=== PATIENT | male | born 1960 | race Caucasian/White ===

== ENCOUNTER 2017-08-17 18:34 | Inpatient (IN) | payer OTHER ==
[~2017-08-17] VITALS: Ht 170.2 cm; Wt 109.2 kg
[2017-08-17] MEDS ORDERED: SODIUM CHLORIDE 0.9% 1000ML 1,000 ML IV STA ×2 (18:49→18:52)
[2017-08-17] MEDS ORDERED: FENTANYL CITRATE INJ 50 MCG/1 ML 2 ML VIAL IV STA ×2 (18:51→20:58)
[2017-08-17] MEDS ORDERED: OPTIRAY 320 IV PRN (19:00)
[2017-08-17 19:33] LABS: HEMATOCRIT 39.2 % (42-52); HEMOGLOBIN 14.2 g/dL (14.0-18.0); MEAN CELL VOLUME 90.5 fL (80-100); MEAN CORPUSCULAR HEMOGLOBIN 32.8 pg (25-34); MEAN CORPUSCULAR HGB CONC 36.2 g/dl (32-36); MEAN PLATELET VOLUME 8.2 fL (7.4-10.4); PLATELET COUNT 217 K/uL (130-400); RED CELL DISTRIBUTION WIDTH CV 12.6 % (11.5-14.5); RED CELL DISTRIBUTION WIDTH SD 41.4 fL (36.4-46.3); WHITE BLOOD COUNT 12.04 K/uL (4.8-10.8)
[2017-08-17 20:02] LABS: ALBUMIN 3.8 gm/dl (3.4-5.0); CALCIUM 8.5 mg/dl (8.5-10.1); CREATININE 1.02 mg/dl (0.60-1.40); POTASSIUM 3.5 mmol/L (3.5-5.1)
[2017-08-17 20:14] LABS: ISTAT CREATININE 0.7 mg/dl (0.6-1.3); ISTAT IONIZED CALCIUM 1.07 mmol/l (1.12-1.32); ISTAT POTASSIUM 3.5 mEq/L (3.3-5.0)
[2017-08-17 20:27] LABS: BASO % 0.2 %; BASO ABS # 0.02 K/uL (0-0.2); EOS % 1.4 %; EOS ABS # 0.17 K/uL (0-0.5); IG# 0.04 K/uL (0.00-0.02); LYMPH % 13.8 %; LYMPH ABS # 1.66 K/uL (1.2-3.4); MONO % 6.6 %; MONO ABS # 0.79 K/uL (0.11-0.59); NEUT % 77.7 %; NEUT ABS # 9.36 K/uL (1.4-6.5)
--- NOTE | 2017-08-17 20:27 | DIAGNOSTIC IMAGING REPORT ---
CT OF THE HEAD WITHOUT CONTRAST CLINICAL HISTORY: EVALUATE FOR TRAUMA/INJURY COMPARISON STUDY: No previous studies for comparison. CT DOSE: 2559.48 mGy.cm TECHNIQUE: Helical axial images of the head were obtained without IV contrast. Automated exposure control was utilized for the study. A dose lowering technique was utilized adhering to the principles of ALARA. FINDINGS: No acute intracranial hemorrhage, midline shift or mass effect is present. Ventricular system is normal. Basilar cisterns are patent. There are no extra-axial collections. A 1.1 cm inferior right frontal hypodensity is chronic and may reflect an old lacunar infarct or less likely prominent perivascular space. No chondral fracture is noted. There is nasal soft tissue swelling. There is minimally displaced bilateral nasal bone fractures and a suspected fracture through the anterior nasal septum. These fractures are likely acute. There is moderate mucosal thickening of the ethmoid sinuses. IMPRESSION: 1. No acute intracranial findings. 2. No calvarial fracture. 3. Nasal soft tissue swelling and minimally displaced bilateral nasal bone fractures and a suspected fracture through the anterior aspect of the nasal septum. These fractures are likely acute. Electronically signed by: Bud Tolbert M.D. 08/17/2017 8:26 PM Dictated Date/Time: 08/17/2017 8:23 PM
--- NOTE | 2017-08-17 20:31 | DIAGNOSTIC IMAGING REPORT ---
CT OF THE CERVICAL SPINE WITHOUT CONTRAST CLINICAL HISTORY: EVALUATE FOR TRAUMA/INJURY COMPARISON STUDY: No previous studies for comparison. TECHNIQUE: Helical axial images of the cervical spine were obtained without IV contrast. Sagittal and coronal reconstructions were viewed. A dose lowering technique was utilized adhering to the principles of ALARA. FINDINGS: There is straightening of the normal cervical lordosis. Craniocervical junction is intact. There is no acute cervical spine fracture. There is moderate to marked multilevel disc space narrowing and osteophytosis, most pronounced at the C5-C6 and C6-C7 levels. There is no prevertebral edema. A proximal left humeral fracture is noted on the screw machine tool setter images. IMPRESSION: 1. No acute cervical spine fracture or subluxation. 2. Displaced comminuted proximal left humeral fracture shown on the screw machine tool setter tomogram. Electronically signed by: Bud Tolbert M.D. 08/17/2017 8:30 PM Dictated Date/Time: 08/17/2017 8:26 PM
--- NOTE | 2017-08-17 20:47 | DIAGNOSTIC IMAGING REPORT ---
CT OF THE CHEST WITH IV CONTRAST CLINICAL HISTORY: Trauma COMPARISON STUDY: No previous studies for comparison. TECHNIQUE: Following IV administration of 116 mL of Optiray-[id number], helical axial images of the chest were obtained. Sagittal and coronal reconstructions were viewed as well as maximal intensity projections on an independent 3-D workstation. A dose lowering technique was utilized adhering to the principles of ALARA. FINDINGS: A comminuted, displaced left humeral neck and head fracture is partially imaged on this exam. A 2.5 cm associated bone fragment is adjacent to the left axillary artery. There is no definite active extravasation on this exam and the artery appears patent. The size of the heart is normal. There is no evidence for traumatic injury to the thoracic aorta. There is no thoracic lymphadenopathy. No pneumothorax or pulmonary contusion is noted. No acute rib or thoracic spine fracture is identified. Visualized portions of the upper abdomen demonstrate fatty infiltration of the liver and gallstones within the gallbladder. There may be a small cystic duct stone. Note is made of a water attenuation 5.4 cm left adrenal lesion which likely reflects a cyst or pseudocyst. This has benign imaging characteristics. IMPRESSION: 1. Acute displaced, comminuted left humeral neck and head fracture which is partially imaged on this exam. Associated stranding/fluid suggests hemorrhage. Fracture fragment adjacent to the left axillary artery which appears patent. No definite active extravasation on this exam. 2. No additional acute traumatic findings within the chest. 3. Fatty liver. 4. Cholelithiasis. 5. 5.4 cm left adrenal cyst/pseudocyst which has benign imaging characteristics. Electronically signed by: Bud Tolbert M.D. 08/17/2017 8:46 PM Dictated Date/Time: 08/17/2017 8:36 PM
--- NOTE | 2017-08-17 20:58 | DIAGNOSTIC IMAGING REPORT ---
CHEST ONE VIEW PORTABLE CLINICAL HISTORY: EVALUATE FOR TRAUMA/INJURY COMPARISON STUDY: Chest CT performed earlier today. FINDINGS: There is no pneumothorax or pleural effusion. Cardiomediastinal silhouette is unremarkable. No airspace opacities are present. Lung volumes are normal. IMPRESSION: No acute cardiopulmonary findings. Electronically signed by: Bud Tolbert M.D. 08/17/2017 8:57 PM Dictated Date/Time: 08/17/2017 8:56 PM
--- NOTE | 2017-08-17 21:00 | DIAGNOSTIC IMAGING REPORT ---
L SHOULDER MIN 2 VIEWS ROUTINE CLINICAL HISTORY: Left shoulder pain following injury. COMPARISON: None FINDINGS: There is a markedly displaced, comminuted left humeral neck and head fracture. Multiple fracture fragments are present. Alignment of the glenohumeral joint is difficult to assess on this exam but likely anatomic. Alignment of the left acromioclavicular joint is anatomic. IMPRESSION: 1. Markedly displaced, comminuted left humeral neck and head fracture with multiple associated fracture fragments. 2. Alignment of left glenohumeral joint difficult to assess on this exam but intact. Electronically signed by: Bud Tolbert M.D. 08/17/2017 8:58 PM Dictated Date/Time: 08/17/2017 8:57 PM
--- NOTE | 2017-08-17 21:01 | DIAGNOSTIC IMAGING REPORT ---
L HUMERUS MIN 2 VIEWS ROUTINE CLINICAL HISTORY: Left shoulder pain following trauma. COMPARISON: None FINDINGS: Alignment of the left elbow is anatomic. There is no left elbow joint effusion. There is no distal left humeral fracture. There is a displaced, comminuted left humeral neck and head fracture which involves the greater tuberosity. Multiple fracture fragments are noted. IMPRESSION: Markedly displaced, comminuted left humeral neck and head fracture with multiple associated fracture fragments. No distal left humeral fracture. Anatomic alignment of left elbow. Electronically signed by: Bud Tolbert M.D. 08/17/2017 8:59 PM Dictated Date/Time: 08/17/2017 8:59 PM
--- NOTE | 2017-08-17 21:01 | DIAGNOSTIC IMAGING REPORT ---
L FOREARM 2 VIEWS ROUTINE CLINICAL HISTORY: Pain following trauma. COMPARISON: None FINDINGS: There is no left elbow joint effusion. There is no acute fracture of the left radius or ulna. Alignment of the left elbow is anatomic. IMPRESSION: No acute fracture of the left radius or ulna. Electronically signed by: Bud Tolbert M.D. 08/17/2017 9:00 PM Dictated Date/Time: 08/17/2017 8:59 PM
[2017-08-17] MEDS ORDERED: MoRPHine SULFATE 4 MG/ML 1 ML CARP\\VIAL IV PRN (21:30)
[2017-08-17] MEDS ORDERED: ONDANSETRON INJ 2 MG/ML 2 ML VIAL IV PRN (21:30)
--- NOTE | 2017-08-17 21:45 | DIAGNOSTIC IMAGING REPORT ---
R HAND MIN 3 VIEWS ROUTINE CLINICAL HISTORY: Right hand pain, swelling and bruising following trauma. COMPARISON: None FINDINGS: Alignment of the right hand is anatomic. There is no acute fracture. Note is made of a monitoring device on the second finger. IMPRESSION: No acute fracture or dislocation within the right hand. Electronically signed by: Bud Tolbert M.D. 08/17/2017 9:44 PM Dictated Date/Time: 08/17/2017 9:42 PM
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
[2017-08-17] MEDS ORDERED: ASC400 PO (21:49)
[2017-08-17] MEDS ORDERED: SERT50TA PO (21:49)
[2017-08-17] MEDS ORDERED: LEVO175T PO (21:49)
[2017-08-17] MEDS ORDERED: ASPI81TA28 PO (21:49)
[2017-08-17] MEDS ORDERED: FAMO40TA6 PO (21:49)
[2017-08-17] MEDS ORDERED: ACET-1256 PO (21:49)
[2017-08-17] MEDS ORDERED: PRAV20TA PO (21:49)
[2017-08-17] MEDS ORDERED: MULTTAB58 PO (21:49)
[2017-08-17] MEDS ORDERED: CALC625T35 PO (21:49)
[2017-08-17] MEDS ORDERED: CALC600T PO (21:49)
[2017-08-17] MEDS: OXYCODONE/ACETAMINOPHEN 5-325 TAB PO PRN (22:21)
[2017-08-17 23:35] VITALS: BP 136/81; PULSE 84; TEMP 37; O2SAT 98; Ht 170.2 cm; Wt 109.2 kg
[2017-08-18] VITALS (7 sets, daily range): BP systolic 96–137; BP diastolic 54–72; PULSE 71–114; TEMP 36.4–37.2; O2SAT 91–96
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
[2017-08-18] MEDS ORDERED: GLUCOSE 40% GEL 15 GM TUBE PO PRN (01:00)
[2017-08-18] MEDS ORDERED: GLUCOSE 10 TABS/TUBE PO PRN (01:00)
[2017-08-18] MEDS ORDERED: DEXTROSE 50% 50 ML SYR IV PRN (01:00)
[2017-08-18] MEDS ORDERED: GLUCAGON FOR INJ 1 MG VIAL SQ PRN (01:00)
[2017-08-18] MEDS: OXYCODONE/ACETAMINOPHEN 5-325 TAB PO PRN (02:30)
[2017-08-18] MEDS ORDERED: CEFAZOLIN SOD 2000MG/15 ML IV PUSH IV ONE (06:00)
[2017-08-18 07:02] LABS: HEMOGLOBIN A1C 6.2 % (4.5-5.6)
[2017-08-18] MEDS ORDERED: INSULIN ASPART 100 UNITS/ML 3 ML PEN SC SCH (08:00)
[2017-08-18] MEDS ORDERED: KETOROLAC TROMETHAMINE 30 MG/ML VIAL IV STA (08:26)
[2017-08-18] MEDS ORDERED: DOCUSATE SODIUM 100 MG CAP PO SCH (09:00)
--- NOTE | 2017-08-18 11:09 | DIAGNOSTIC IMAGING REPORT ---
L UPPER EXTREMITY WITHOUT CT DOSE: 1265.30 mGy.cm HISTORY: Fracture humerus Left Proximal Humerus Fx TECHNIQUE: Multiaxial CT images of the left shoulder were performed and reformatted in the sagittal and coronal plane without the use of contrast. A dose lowering technique was utilized adhering to the principles of ALARA. COMPARISON: None. FINDINGS: The severely comminuted and moderately impacted fracture of the left humeral head and neck. No evidence for dislocation. The humeral head is aligned anatomically within the glenoid fossa. Moderate degenerative change left acromioclavicular joint. Estimated impaction of the femoral head by the left humeral shaft is 1.2 cm. Ossific fragments are noted lateral and anterior to the humeral head measuring from 2.6 cm in maximum linear dimension, including 1.5 cm in a anterior and medial to the humeral neck. Cm more anterior position. Smaller fragmented ossific structures are noted medial to the left humeral neck. No evidence of dislocation. All remaining osseous structures are unremarkable. Maximum bony distraction of the displaced fragments is 1.1 cm. There is focal loss of articular surface which is displaced laterally at the anterior aspect of the humeral head again with a maximum linear surface dimension 2.6 cm. Bulk of the humeral head again appears to be intact. There is considerable stranding soft tissue edematous change. This extends to considerable edematous change of the high left axillary region. All remaining osseous structures are intact. IMPRESSION: 1. Severely comminuted and impacted fracture of the humeral head and neck with partial involvement of the anterior aspect of the articular surface of the humeral head. 2. A variety of bone fragments in terms of size are identified anterior and lateral to the anterior margin of the humeral head. 3. Additional fragments are noted anterior and medial to the humeral neck. 4. No evidence for dislocation. 5. Generalized soft tissue edema of the soft tissues surrounding the left shoulder as well as the lateral margin of the left chest wall. 6. No additional fractures are identified. The above report was generated using voice recognition software. It may contain grammatical, syntax or spelling errors. Electronically signed by: Callum Torres M.D. 08/18/2017 11:07 AM Dictated Date/Time: 08/18/2017 10:59 AM
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
[2017-08-18] MEDS ORDERED: FENTANYL CITRATE INJ 50 MCG/1 ML 2 ML VIAL ONE (14:28)
[2017-08-18] MEDS ORDERED: MIDAZOLAM HCL 1 MG/ML 2ML VIAL ONE (14:28)
[2017-08-18] MEDS ORDERED: EpINEphrine HCL INJ 1 MG/ML 1ML SYRINGE ONE (14:57)
[2017-08-18] MEDS ORDERED: BACITRACIN 50000 UNIT VIAL ONE (14:57)
[2017-08-18] MEDS ORDERED: EpHEDrine SULFATE 50MG/5ML SYR ONE ×2 (15:04→16:59)
[2017-08-18] MEDS ORDERED: FENTANYL CITRATE INJ 50 MCG/1 ML 2 ML VIAL IV PRN (15:30)
[2017-08-18] MEDS ORDERED: EpHEDrine SULFATE INJ 50 MG/ML AMP IV PRN (15:30)
[2017-08-18] MEDS ORDERED: HYDROmorphone INJ 1 MG/ML SYR IV PRN (15:30)
[2017-08-18] MEDS ORDERED: ONDANSETRON INJ 2 MG/ML 2 ML VIAL IV PRN (15:30)
[2017-08-18] MEDS ORDERED: ATROPINE SULFATE 0.1 MG/ML 5ML SYR IV PRN (15:30)
[2017-08-18] MEDS ORDERED: ROPIVACAINE 0.5% 5 MG/ML 30 ML VIAL ONE (15:31)
[2017-08-18] MEDS ORDERED: CLINDAMYCIN 600 MG/54 ML D5W IV ONE (15:43)
[2017-08-18] MEDS ORDERED: NURSING VERBAL MED ORDER ONE (15:45)
[2017-08-18] MEDS ORDERED: PROPOFOL IV EMULSION 10 MG/ML 20 ML VIAL IV ONE (15:55)
[2017-08-18] MEDS ORDERED: LIDOCAINE HCL 2% 2 ML VIAL (20MG/ML) ONE (15:55)
[2017-08-18] MEDS ORDERED: ROCURONIUM BROMIDE 10 MG/ML 5 ML VIAL IV ONE (15:55)
[2017-08-18] MEDS ORDERED: ONDANSETRON INJ 2 MG/ML 2 ML VIAL ONE (16:59)
[2017-08-18] MEDS ORDERED: DEXAMETHASONE SOD INJ 4 MG/ML VIAL ONE (16:59)
[2017-08-18] MEDS ORDERED: PHENYLEPHRINE 100MCG/ML 5ML SYR ONE (16:59)
[2017-08-18] MEDS ORDERED: NEOSTIGMINE METHYLSULFATE 5 MG/5 ML SYR ONE (16:59)
[2017-08-18] MEDS ORDERED: GLYCOPYRROLATE INJ 0.2 MG/ML VIAL ONE (16:59)
[2017-08-18] MEDS ORDERED: PHENYLEPHRINE HCL INJ 10 MG/ML VIAL ONE (17:29)
--- NOTE | 2017-08-18 17:39 | Family Medicine Progress Note ---
Progress Note Date of Service Aug 18, 2017. Subjective Pt evaluation today including: conversation w/ patient, physical exam, chart review, lab review, review of inpatient medication list See medical consultation note by Dr. Humphrey for H&P. Assessment and Plan The patient is a 57 year old male with a past medical history of HTN, Ulcerative Colitis, Depression, GERD, and HLD that presents from [facility] with a fractured left humerus. Left Humeral Head Fracture - Left Humeral X-Ray: Markedly displaced, comminuted left humeral neck and head fracture with multiple associated fracture fragments. No distal left humeral fracture. Anatomic alignment of left elbow. - patient NPO - gave 30mg IV toradol for pain relief as pt reported prior withdrawal symptoms after taking morphine/fentanyl and did not wish to take it again - Scheduled for surgery with Dr. Hidalgo - Revised Cardiac Risk Index for Pre-Operative Risk: Class 1 risk --> 0.4% chance of major cardiac event - Currently optimized for surgery Nasal Fractures - CT Head: Nasal soft tissue swelling and minimally displaced bilateral nasal bone fractures and a suspected fracture through the anterior aspect of the nasal septum. These fractures are likely acute. - No difficulties breathing at this time - likely outpatient management History of Hypertension - Currently normotensive with no antihypertensive medications (lifestyle controlled) - EKG: Normal Sinus Rhythm, No ST Changes, Ulcerative Colitis - No recent flares - Mesalamine 800mg PO BID --> Resume post operatively High Glucose Levels - Glucose levels were in the 200 on admission, patient denies any history of diabetes or elevated blood sugars - HbA1c = 6.2% - high risk for developing diabetes - pt's sugar fell to 160 prior to surgery - did not require pretreatment with insulin Depression - Continue Zoloft KATINA - Recommend sleep study as outpatient HLD - Continue Pravastatin GERD - Continue Pepcid Hypothyroidism - Continue Synthroid DVT - SCDs - Anticoagulation contraindicated (Surgery) Code Status - Full Resuscitation Thank you for the consult. Resident Physician Supervision Note: The patient was seen by the night team attending and resident. I was not able to see the patient as he was in the OR. I reviewed the notes from the night team and the addendum above by the day resident. Documented By: Sharif Menchaca Resident Tracking Resident Involvement: Resident Care Provided Care Provided: [facility]
[2017-08-18] MEDS ORDERED: ALBUMIN HUMAN 5% 12.5 GM/250 ML VIAL IV ONE (17:59)
--- NOTE | 2017-08-18 19:23 | [facility] Post Operative Brief Note ---
Immediate Operative Summary Operative Date Aug 18, 2017. Pre-Operative Diagnosis comminuted humerus fracture Post-Operative Diagnosis comminuted humerus fracture Procedure(s) Performed Left shoulder Natalio-arthoplasty repair rotator cuff and tuberosity with humeral head bone graft and bicep tenodesis Surgeon Dr Torres Network Design Architect Surgeon(s) Zach Sainz PA-C Estimated Blood Loss 500cc Findings Consistent with Post-Op Diagnosis Specimens As Per Surgeon A. Left Humeral head Drains 2 hemovac Anesthesia Type General Regional Complication(s) none Disposition Disposition: Recovery Room / PACU
[2017-08-18] MEDS ORDERED: BISACODYL 10 MG SUPP PR PRN (19:45)
[2017-08-18] MEDS ORDERED: MAGNESIUM HYDROXIDE SUSP 30 ML UDC PO PRN (19:45)
[2017-08-18] MEDS ORDERED: ALUMINUM/MAGNESIUM SUSP 30 ML UDC PO PRN (19:45)
[2017-08-18] MEDS ORDERED: MoRPHine SULFATE 2 MG/ML CARP IV PRN (19:45)
--- NOTE | 2017-08-18 20:08 | DIAGNOSTIC IMAGING REPORT ---
L SHOULDER MIN 2 VIEWS ROUTINE CLINICAL HISTORY: Left humeral fracture. Postop study. COMPARISON: 08/17/2017 DISCUSSION: There is a left shoulder hemiarthroplasty. There is a partially visualized 3 cm fracture fragment adjacent to the prosthetic humeral head. There is no dislocation. Overlying skin sadie and surgical drains are evident. IMPRESSION: Left shoulder hemiarthroplasty. No dislocation Electronically signed by: Jan Najera M.D. 08/18/2017 8:06 PM Dictated Date/Time: 08/18/2017 8:05 PM
--- NOTE | 2017-08-18 20:09 | Anesthesiology Progress Note ---
Anesthesia Post Op Note Date & Time Aug 18, 2017 at 20:09 Vital Signs Pain Intensity: 0 Vital Signs Past 12 Hours Date Time Temp Pulse Resp B/P (MAP) Pulse Ox O2 Delivery O2 Flow Rate FiO2 08/18/17 20:05 36.7 105 18 117/76 95 Nasal Cannula 4 08/18/17 19:55 102 18 119/73 95 Oxymask 6 08/18/17 19:45 112 20 118/73 96 Oxymask 6 08/18/17 19:39 36.4 112 20 116/72 96 Oxymask 10 08/18/17 15:22 36.9 82 16 117/67 (84) 95 Room Air Notes Mental Status: alert / awake / arousable, participated in evaluation Pt Amnestic to Procedure: Yes Nausea / Vomiting: adequately controlled Pain: adequately controlled Airway Patency, RR, SpO2: stable & adequate BP & HR: stable & adequate Hydration State: stable & adequate Anesthetic Complications: no major complications apparent
[2017-08-18 20:26] LABS: HEMATOCRIT 29.5 % (42-52)
[2017-08-18] MEDS ORDERED: MoRPHine SULFATE 10 MG/ML CARP/VIAL IV PRN (20:30)
[2017-08-18] MEDS ORDERED: MoRPHine SULFATE 4 MG/ML 1 ML CARP\\VIAL IV PRN (20:30)
[2017-08-18] MEDS: DOCUSATE SODIUM 100 MG CAP PO SCH (21:22)
[2017-08-18] MEDS: ACETAMINOPHEN 500 MG TAB PO SCH (21:23)
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
[2017-08-18] MEDS: OXYCODONE HCL IR 5 MG TAB (IMMEDIATE RELEASE) PO PRN (22:08)
[2017-08-19] MEDS: KETOROLAC TROMETHAMINE 30 MG/ML VIAL IV. SCH ×4 (00:07→18:00)
[2017-08-19] MEDS: CLINDAMYCIN IV 600 MG in DEXTROSE 5% 50ML 50 ML IV SCH ×2 (00:08→08:45)
[2017-08-19 03:38] VITALS: BP 104/62; PULSE 101; TEMP 36.9; O2SAT 93
[2017-08-19] MEDS: ACETAMINOPHEN 500 MG TAB PO SCH ×3 (05:34→22:21)
[2017-08-19 07:22] LABS: HEMATOCRIT 24.4 % (42-52); HEMOGLOBIN 8.5 g/dL (14.0-18.0); MEAN CELL VOLUME 93.5 fL (80-100); MEAN CORPUSCULAR HEMOGLOBIN 32.6 pg (25-34); MEAN CORPUSCULAR HGB CONC 34.8 g/dl (32-36); PLATELET COUNT 167 K/uL (130-400); RED CELL DISTRIBUTION WIDTH CV 13.2 % (11.5-14.5); RED CELL DISTRIBUTION WIDTH SD 45.7 fL (36.4-46.3); WHITE BLOOD COUNT 9.69 K/uL (4.8-10.8)
[2017-08-19 07:44] VITALS: BP 112/66; PULSE 105; TEMP 36.6; O2SAT 95
[2017-08-19] MEDS: OXYCODONE HCL IR 5 MG TAB (IMMEDIATE RELEASE) PO PRN ×3 (07:46→21:11)
[2017-08-19 07:50] LABS: CALCIUM 7.9 mg/dl (8.5-10.1); CREATININE 0.81 mg/dl (0.60-1.40)
[2017-08-19] MEDS: SERTRALINE HCL 50 MG TAB PO SCH (09:00)
[2017-08-19] MEDS: MESALAMINE 400 MG CAPDR PO SCH ×3 (09:00→21:05)
[2017-08-19] MEDS: DOCUSATE SODIUM 100 MG CAP PO SCH ×2 (09:19→21:05)
[2017-08-19] MEDS: MULTIVITAMIN TAB PO SCH (09:20)
[2017-08-19] MEDS: ASPIRIN 325 MG ECTAB PO SCH (09:28)
[2017-08-19] MEDS: LEVOTHYROXINE 175 MCG TAB PO SCH (10:13)
--- NOTE | 2017-08-19 10:59 | Anesthesiology Progress Note ---
Anesthesia Post Op Note Date & Time Aug 19, 2017 at 10:58 Vital Signs Vital Signs Past 12 Hours Date Time Temp Pulse Resp B/P (MAP) Pulse Ox O2 Delivery O2 Flow Rate FiO2 08/19/17 08:00 Room Air 08/19/17 07:44 36.6 105 18 112/66 (81) 95 Room Air 08/19/17 03:38 36.9 101 18 104/62 (76) 93 Room Air 08/19/17 00:00 Nasal Cannula 2.0 08/18/17 23:30 36.8 108 18 98/54 (69) 96 Nasal Cannula 2.0 Notes Mental Status: alert / awake / arousable, participated in evaluation Pt Amnestic to Procedure: Yes Nausea / Vomiting: adequately controlled Pain: adequately controlled Airway Patency, RR, SpO2: stable & adequate BP & HR: stable & adequate Hydration State: stable & adequate Anesthetic Complications: no major complications apparent
[2017-08-19 16:07] VITALS: BP 99/61; PULSE 100; TEMP 37.1; O2SAT 93
--- NOTE | 2017-08-19 16:10 | Orthopedic Progress Note ---
Orthopedic Progress Note Date of Service Aug 19, 2017. Subjective Post OP Day: 1 Reports: feeling well, pain controlled w PO medications, Denies: complaints, chest pain, SOB, nausea / vomiting, light headedness, calf pain Objective N/V intact, capillary refill less than 2 sec., dressing C/D/I, A&O x3 sling in tact, fingers mobile. Date Time Temp Pulse Resp B/P (MAP) Pulse Ox O2 Delivery O2 Flow Rate FiO2 08/19/17 16:07 37.1 100 19 99/61 (74) 93 Room Air 08/19/17 08:00 Room Air 08/19/17 07:44 36.6 105 18 112/66 (81) 95 Room Air 08/19/17 03:38 36.9 101 18 104/62 (76) 93 Room Air 08/19/17 00:00 Nasal Cannula 2.0 08/18/17 23:30 36.8 108 18 98/54 (69) 96 Nasal Cannula 2.0 08/18/17 22:27 36.7 114 16 96/60 (72) 94 Nasal Cannula 4.0 08/18/17 21:26 36.4 109 16 104/67 (79) 91 Nasal Cannula 4.0 08/18/17 21:00 36.4 110 18 106/64 (78) 95 Nasal Cannula 2.0 08/18/17 20:30 37.2 109 16 101/62 (75) 96 Nasal Cannula 2.0 08/18/17 20:30 Nasal Cannula 2.0 08/18/17 20:30 96 Nasal Cannula 2.0 08/18/17 20:15 103 16 104/71 98 Nasal Cannula 4 08/18/17 20:05 36.7 105 18 117/76 95 Nasal Cannula 4 08/18/17 19:55 102 18 119/73 95 Oxymask 6 08/18/17 19:45 112 20 118/73 96 Oxymask 6 08/18/17 19:39 36.4 112 20 116/72 96 Oxymask 10 Laboratory Results 24 Hours: Test 08/18/17 19:45 08/19/17 06:54 Hematocrit 29.5 % 24.4 % Hemoglobin 10.0 g/dL 8.5 g/dL Assessment & Plan Assessment: POD #1, Left shoulder hemiarthroplasty s/p fx Plan: Limited PT as ordered DVT proph- ASA D/C per primary service Inhouse Planning Pain Management: Morphine, PO Tylenol, Oxy IR DVT Prophylaxis: SCDs, ASA Discharge Planning Discharge Planning: other ([facility] Pain Management: PO Tylenol, Oxy IR DVT Prophylaxis: ASA
--- NOTE | 2017-08-19 16:41 | Family Medicine Progress Note ---
Progress Note Date of Service Aug 19, 2017. Subjective Pt evaluation today including: conversation w/ patient, physical exam, chart review, lab review, review of inpatient medication list Pain: Left arm pain reported PO Intake: Tolerating PO intake Voiding: no voiding problems Mr. Mo reports some pain in his left arm, particularly over the site where the drain was placed. He denies chest pain, shortness of breath, palpitations, and has been ambulating well without dizziness or lightheadedness. Constitutional: No fever, No chills Respiratory: No cough, No shortness of breath Cardiovascular: No chest pain, No edema Abdomen: No pain, No nausea, No vomiting All Other Systems: Reviewed and Negative Medications Current Inpatient Medications Medications (Trade) Dose Ordered Sig/Jourdan Route Start Time Stop Time Status Last Admin Dose Admin Ioversol (Optiray 320) 100 ml UD PRN IV 08/17/17 19:00 08/21/17 18:59 Glucose (Glucose 40% Gel) 15-30 GRAMS 15 GRAMS... UD PRN PO 08/18/17 01:00 09/17/17 00:59 Glucose (Glucose Chew Tab) 4-8 Tablets 4 Tabl... UD PRN PO 08/18/17 01:00 09/17/17 00:59 Dextrose (Dextrose 50% 50ML Syringe) 25-50ML OF 50% DW IV FOR... UD PRN IV 08/18/17 01:00 09/17/17 00:59 Glucagon (Glucagon Inj) 1 mg UD PRN SQ 08/18/17 01:00 09/17/17 00:59 Morphine Sulfate (MoRPHine SULFATE INJ) 2 mg Q4HWA PRN IV 08/18/17 19:45 09/01/17 19:44 Ketorolac Tromethamine (Toradol Inj) 30 mg Q6H IV. 08/19/17 00:00 08/19/17 18:01 08/19/17 11:46 30 MG Al Hydroxide/Mg Hydroxide (Maalox Susp) 30 ml Q4H PRN PO 08/18/17 19:45 09/17/17 19:44 Oxycodone HCl (Roxicodone Immediate Rel Tab) `1-2 TABS FOR PAIN `1 TAB... Q4H PRN PO 08/18/17 19:45 09/01/17 19:44 08/19/17 15:48 10 MG Acetaminophen (Tylenol Tab) 1,000 mg Q8 PO 08/18/17 22:00 09/17/17 21:59 08/19/17 13:51 1,000 MG Magnesium Hydroxide (Milk Of Magnesia Susp) 30 ml Q6H PRN PO 08/18/17 19:45 09/17/17 19:44 Bisacodyl (Dulcolax Supp) 10 mg DAILY PRN NH 08/18/17 19:45 09/17/17 19:44 Docusate Sodium (coLACE CAP) 100 mg BID PO 08/18/17 21:00 09/17/17 20:59 08/19/17 09:19 100 MG Multivitamins (Multivitamin Tab) 1 tab DAILY PO 08/19/17 09:00 09/18/17 08:59 08/19/17 09:20 1 TAB Aspirin (Ecotrin Tab) 325 mg QAM PO 08/19/17 09:00 09/18/17 08:59 08/19/17 09:28 325 MG Morphine Sulfate (MoRPHine SULFATE INJ) 4 mg Q4HWA PRN IV 08/18/17 20:30 09/01/17 20:29 Morphine Sulfate (MoRPHine SULFATE INJ) 6 mg Q4HWA PRN IV 08/18/17 20:30 09/01/17 20:29 Famotidine (Pepcid Tab) 40 mg HS PO 08/19/17 21:00 09/18/17 20:59 Levothyroxine Sodium (Synthroid Tab) 175 mcg DAILYBB PO 08/20/17 06:00 09/19/17 05:59 08/19/17 10:13 175 MCG Mesalamine (Delzicol Delayed Rel Cap) 800 mg BID PO 08/19/17 09:00 09/18/17 08:59 Pravastatin Sodium (Pravachol Tab) 20 mg HS PO 08/19/17 21:00 09/18/17 20:59 Sertraline HCl (Zoloft Tab) 150 mg QAM PO 08/19/17 09:00 09/18/17 08:59 Objective Vital Signs Date Time Temp Pulse Resp B/P (MAP) Pulse Ox O2 Delivery O2 Flow Rate FiO2 08/19/17 16:07 37.1 100 19 99/61 (74) 93 Room Air 08/19/17 08:00 Room Air 08/19/17 07:44 36.6 105 18 112/66 (81) 95 Room Air 08/19/17 03:38 36.9 101 18 104/62 (76) 93 Room Air 08/19/17 00:00 Nasal Cannula 2.0 08/18/17 23:30 36.8 108 18 98/54 (69) 96 Nasal Cannula 2.0 08/18/17 22:27 36.7 114 16 96/60 (72) 94 Nasal Cannula 4.0 08/18/17 21:26 36.4 109 16 104/67 (79) 91 Nasal Cannula 4.0 08/18/17 21:00 36.4 110 18 106/64 (78) 95 Nasal Cannula 2.0 08/18/17 20:30 37.2 109 16 101/62 (75) 96 Nasal Cannula 2.0 08/18/17 20:30 Nasal Cannula 2.0 08/18/17 20:30 96 Nasal Cannula 2.0 08/18/17 20:15 103 16 104/71 98 Nasal Cannula 4 08/18/17 20:05 36.7 105 18 117/76 95 Nasal Cannula 4 08/18/17 19:55 102 18 119/73 95 Oxymask 6 08/18/17 19:45 112 20 118/73 96 Oxymask 6 08/18/17 19:39 36.4 112 20 116/72 96 Oxymask 10 Physical Exam General Appearance: WD/WN, no apparent distress, + pertinent finding (left arm in sling with hemovacs in place) ENT: + pertinent finding (scab over nose. Nose appears swollen ) Respiratory/Chest: lungs clear, normal breath sounds, no respiratory distress, no accessory muscle use Cardiovascular: regular rate, rhythm, no edema Abdomen: non tender, soft Neurologic/Psychiatric: alert, normal mood/affect, oriented x 3 Laboratory Results Last 24 Hours Test 08/18/17 19:45 08/18/17 20:39 08/19/17 06:54 Hemoglobin 10.0 g/dL 8.5 g/dL Hematocrit 29.5 % 24.4 % Bedside Glucose 164 mg/dl White Blood Count 9.69 K/uL Red Blood Count 2.61 M/uL Mean Corpuscular Volume 93.5 fL Mean Corpuscular Hemoglobin 32.6 pg Mean Corpuscular Hemoglobin Concent 34.8 g/dl RDW Standard Deviation 45.7 fL RDW Coefficient of Variation 13.2 % Platelet Count 167 K/uL Mean Platelet Volume 8.0 fL Sodium Level 134 mmol/L Potassium Level 4.0 mmol/L Chloride Level 101 mmol/L Carbon Dioxide Level 25 mmol/L Anion Gap 7.0 mmol/L Blood Urea Nitrogen 12 mg/dl Creatinine 0.81 mg/dl Est Creatinine Clear Calc Drug Dose 120.1 ml/min Estimated GFR () 115.1 Estimated GFR (Non- 99.4 BUN/Creatinine Ratio 15.1 Random Glucose 204 mg/dl Calcium Level 7.9 mg/dl Hepatitis C Antibody Screen NEG Assessment and Plan The patient is a 57 year old male with a past medical history of HTN, Ulcerative Colitis, Depression, GERD, and HLD that presents from [facility] with a fractured left humerus. Left Humeral Head Fracture - Left Humeral X-Ray: Markedly displaced, comminuted left humeral neck and head fracture with multiple associated fracture fragments. No distal left humeral fracture. Anatomic alignment of left elbow. - patient underwent left shoulder hemiarthroplasty yesterday - per ortho team -> limited PT -> tylenol, morphine and oxycodone IR - pt prefers not to take morphine as he experiences "withdrawal symptoms" immediately after taking it Hemoglobin Drop - pt's hemoglobin dropped from 14.2 to 8.5 after surgery - currently asymptomatic - type and screen ordered and 2 units on hold in case blood transfusion becomes necessary Nasal Fractures - CT Head: Nasal soft tissue swelling and minimally displaced bilateral nasal bone fractures and a suspected fracture through the anterior aspect of the nasal septum. These fractures are likely acute. - No difficulties breathing at this time - outpatient f/u History of Hypertension - Currently normotensive with no antihypertensive medications (lifestyle controlled) Ulcerative Colitis - No recent flares - continue home dose of Mesalamine 800mg PO BID High Glucose Levels - Glucose levels were in the 200s on admission, patient denies any history of diabetes or elevated blood sugars - HbA1c = 6.2% - high risk for developing diabetes - outpatient management Depression - Continue Zoloft KATINA - Recommend sleep study as outpatient HLD - Continue Pravastatin GERD - Continue Pepcid Hypothyroidism - Continue Synthroid DVT - SCDs - ASA Code Status - Full Resuscitation Thank you for the consult. Resident Physician Supervision Note: I was present with the resident during the history and exam. I discussed the case with the resident and agree with the findings and plan as documented in the note. Upon exam , he denies lightheadedness or dizziness; upon my auscultation , his heart rate is 82. Documented heart rate seems higher than what I auscultate; will continue to monitor. Monitor hemoglobin. Documented By: Sharif Menchaca Resident Tracking Resident Involvement: Resident Care Provided Care Provided: Adult Hospital Medicine
[2017-08-19] MEDS: FAMOTIDINE 20 MG TAB PO SCH ×2 (21:00→21:05)
[2017-08-19] MEDS: PRAVASTATIN SOD 20 MG TAB PO SCH (21:04)
[2017-08-19 23:10] VITALS: BP 110/61; PULSE 111; TEMP 37.8; O2SAT 91
[2017-08-20] VITALS (9 sets, daily range): BP systolic 97–124; BP diastolic 54–76; PULSE 86–110; TEMP 36.4–37.4; O2SAT 91–94
[2017-08-20] MEDS ORDERED: NURSING VERBAL MED ORDER ONE (01:00)
[2017-08-20] MEDS: OXYCODONE HCL IR 5 MG TAB (IMMEDIATE RELEASE) PO PRN ×4 (01:10→19:29)
[2017-08-20] MEDS: KETOROLAC TROMETHAMINE 15 MG/ML VIAL IV. PRN ×2 (04:38→20:23)
[2017-08-20] MEDS: LEVOTHYROXINE 175 MCG TAB PO SCH (05:47)
[2017-08-20] MEDS: ACETAMINOPHEN 500 MG TAB PO SCH ×3 (05:48→21:44)
[2017-08-20 08:09] LABS: HEMATOCRIT 23.5 % (42-52); HEMOGLOBIN 7.9 g/dL (14.0-18.0); MEAN CELL VOLUME 95.5 fL (80-100); MEAN CORPUSCULAR HEMOGLOBIN 32.1 pg (25-34); MEAN CORPUSCULAR HGB CONC 33.6 g/dl (32-36); MEAN PLATELET VOLUME 8.1 fL (7.4-10.4); PLATELET COUNT 176 K/uL (130-400); RED CELL DISTRIBUTION WIDTH CV 13.1 % (11.5-14.5); RED CELL DISTRIBUTION WIDTH SD 45.4 fL (36.4-46.3); WHITE BLOOD COUNT 9.81 K/uL (4.8-10.8)
--- NOTE | 2017-08-20 08:15 | Orthopedic Progress Note ---
Orthopedic Progress Note Date of Service Aug 20, 2017. Subjective Post OP Day: 2 Denies: chest pain, SOB, nausea / vomiting, light headedness, calf pain Additional Notes: PATIENT STATES HE'S HAVING MORE PAIN TODAY. HE DID JUST TAKE HIS CHARLOTTE. HAD LOW GRADE TEMP OVER NIGHT. TMAX WAS 37.8. COMPLAINING OF NEW PRODUCTIVE COUGH. DENIES CP, SOB, URINARY SYMPTOMS. Objective calves soft nontender, N/V intact, capillary refill less than 2 sec., dressing C /D/I, A&O x3, toes mobile Date Time Temp Pulse Resp B/P (MAP) Pulse Ox O2 Delivery O2 Flow Rate FiO2 08/20/17 07:23 37.4 110 16 98/58 (71) 92 Room Air 08/20/17 05:50 37.3 110 08/19/17 23:35 Room Air 08/19/17 23:10 37.8 111 20 110/61 (77) 91 Room Air 08/19/17 16:07 37.1 100 19 99/61 (74) 93 Room Air 08/19/17 15:40 Room Air Laboratory Results 24 Hours: Test 08/20/17 07:56 Hematocrit 23.5 % Hemoglobin 7.9 g/dL Assessment & Plan Assessment: POD #2, Left shoulder hemiarthroplasty s/p fx Plan: Limited PT as ordered- REVERSE TSA PROTOCOL DVT proph- ASA 325MG DAILY ORTHOPEDICALLY STABLE FOR DC. WILL AWAIT MEDICAL EVAL TODAY MEDICAL MANAGEMENT- - WILL HAVE THEM EVALUATE COUGH AND FEVER TODAY. - LABS PENDING PAIN MANAGEMENT- CHARLOTTE, TYLENOL Inhouse Planning Pain Management: Morphine, PO Tylenol, Oxy IR DVT Prophylaxis: SCDs, ASA Discharge Planning Discharge Planning: other ([facility] facility) Pain Management: PO Tylenol, Oxy IR DVT Prophylaxis: ASA
--- NOTE | 2017-08-20 08:16 | Discharge Instructions ---
Discharge Instructions Date of Service Aug 20, 2017. Admission Reason for Admission: Fx Lt Humerous Discharge Discharge Diagnosis / Problem: LEFT HUMERUS FRACTURE Discharge Goals Goal(s): Decrease discomfort, Improve function, Increase independence Activity Recommendations Activity Limitations: per Instructions/Follow-up section . Instructions / Follow-Up Instructions / Follow-Up ACTIVITY RECOMMENDATIONS: SELF CARE INSTRUCTIONS AFTER TOTAL SHOULDER ARTHROPLASTY REVERSE A. You may do daily exercises as taught in physical therapy while in hospital. No lifting with the operative arm. B. You are to wear your sling/immobilizer at all times EXCEPT when performing your daily exercises and for hygiene purposes. C. You may perform dry, daily dressing changes. Please keep your incision covered. You may shower 48 hours after surgery. Do not apply soap or any ointment/ lotions directly over incision. Do not soak incision in bath tub/swimming pool. D. You may use ice as needed to operative shoulder. SPECIAL CARE INSTRUCTIONS: VERY IMPORTANT TO READ AND REVIEW A. There are a few signs you need to watch for after you are home. Call [facility] at [phone] if you experience any of the followin. Increased severe shoulder pain. Some pain is expected especially when you exercise. 2. Increased swelling in you shoulder or arm; pain or swelling in either upper extremity. 3. Any fluid drainage from the incision. 4. Shortness of breath or chest pain. B. Please call [facility] at [phone] if you have any questions or concerns about your operation or recovery. C. Call your physician if: 1. Temperature is greater than 101 degrees (F). 2. Pain is not relieved by prescribed pain medications. 3. Increase drainage or redness from incision. 4. Unanswered questions or concerns. FOLLOW UP VISIT: Please call [facility] at [phone] to schedule a follow up appointment with Dr. Torres or his PA in 12-14 days from your surgery date. Current Hospital Diet Patient's current hospital diet: Regular Diet Discharge Diet Recommended Diet: Regular Diet Procedures Procedures Performed: Left shoulder Natalio-arthoplasty cemented, repair rotator cuff and tuberosity with humeral head bone graft and bicep tenodesis Pending Studies Studies pending at discharge: no Laboratory Results Hemoglobin A1c Test 08/17/17 19:17 Range/Units Estimated Average Glucose 131 mg/dl Hemoglobin A1c 6.2 H 4.5-5.6 % Medical Emergencies . Who to Call and When: Medical Emergencies: If at any time you feel your situation is an emergency, please call 911 immediately. . Non-Emergent Contact Non-Emergency issues call your: Surgeon . "Provider Documentation" section prepared by Tania Wilson. . VTE Core Measure Inpt VTE Proph given/why not?: Other Anticoagulation, T.E.D. Stockings, SCD's [place] Drug Monitoring Program Search Results: patient reviewed within database, no issues identified
[2017-08-20] MEDS ORDERED: ASPEC325 PO (08:19)
[2017-08-20] MEDS ORDERED: ACET-1256 PO (08:19)
[2017-08-20] MEDS ORDERED: CLC100 PO (08:19)
[2017-08-20] MEDS ORDERED: RXC5 PO (08:19)
[2017-08-20 08:42] LABS: CALCIUM 7.9 mg/dl (8.5-10.1); CREATININE 0.78 mg/dl (0.60-1.40); POTASSIUM 3.7 mmol/L (3.5-5.1)
[2017-08-20] MEDS: MESALAMINE 400 MG CAPDR PO SCH ×2 (09:00→21:45)
[2017-08-20] MEDS: SERTRALINE HCL 50 MG TAB PO SCH (09:00)
[2017-08-20] MEDS: DOCUSATE SODIUM 100 MG CAP PO SCH ×2 (09:22→21:44)
[2017-08-20] MEDS: MULTIVITAMIN TAB PO SCH (09:23)
[2017-08-20] MEDS: ASPIRIN 325 MG ECTAB PO SCH (09:23)
[2017-08-20 10:14] LABS: INFLUENZA B ANTIGEN Neg for Influ B (NEG)
--- NOTE | 2017-08-20 12:51 | Family Medicine Progress Note ---
Progress Note Date of Service Aug 20, 2017. Subjective Pt evaluation today including: conversation w/ patient, physical exam, chart review, lab review, review of inpatient medication list Pain: Left arm pain reported PO Intake: Tolerating PO intake Voiding: no voiding problems Mr. Mo reports he feels unwell today compared to yesterday. He reports fatigue, as well as a productive cough today. He notes he was a prior smoker, and smoked 1 PPD for about 25 years. He was never diagnosed with asthma or COPD , and has never needed to use inhalers. He denies swelling in his legs, n/v, SOB , abdominal pain. He also reports he has not had a bowel movement in a few days. He notes his left arm pain is well controlled. Constitutional: + weakness, + fatigue, No fever, No chills Respiratory: + cough, + sputum, No shortness of breath Cardiovascular: No chest pain Abdomen: + constipation, No pain, No nausea, No vomiting All Other Systems: Reviewed and Negative Medications Current Inpatient Medications Medications (Trade) Dose Ordered Sig/Jourdan Route Start Time Stop Time Status Last Admin Dose Admin Ioversol (Optiray 320) 100 ml UD PRN IV 08/17/17 19:00 08/21/17 18:59 Glucose (Glucose 40% Gel) 15-30 GRAMS 15 GRAMS... UD PRN PO 08/18/17 01:00 09/17/17 00:59 Glucose (Glucose Chew Tab) 4-8 Tablets 4 Tabl... UD PRN PO 08/18/17 01:00 09/17/17 00:59 Dextrose (Dextrose 50% 50ML Syringe) 25-50ML OF 50% DW IV FOR... UD PRN IV 08/18/17 01:00 09/17/17 00:59 Glucagon (Glucagon Inj) 1 mg UD PRN SQ 08/18/17 01:00 09/17/17 00:59 Morphine Sulfate (MoRPHine SULFATE INJ) 2 mg Q4HWA PRN IV 08/18/17 19:45 09/01/17 19:44 Al Hydroxide/Mg Hydroxide (Maalox Susp) 30 ml Q4H PRN PO 08/18/17 19:45 09/17/17 19:44 Oxycodone HCl (Roxicodone Immediate Rel Tab) `1-2 TABS FOR PAIN `1 TAB... Q4H PRN PO 08/18/17 19:45 09/01/17 19:44 08/20/17 13:01 10 MG Acetaminophen (Tylenol Tab) 1,000 mg Q8 PO 08/18/17 22:00 09/17/17 21:59 08/20/17 13:52 1,000 MG Magnesium Hydroxide (Milk Of Magnesia Susp) 30 ml Q6H PRN PO 08/18/17 19:45 09/17/17 19:44 08/20/17 09:35 30 ML Bisacodyl (Dulcolax Supp) 10 mg DAILY PRN [place] 08/18/17 19:45 09/17/17 19:44 Docusate Sodium (coLACE CAP) 100 mg BID PO 08/18/17 21:00 09/17/17 20:59 08/20/17 09:22 100 MG Multivitamins (Multivitamin Tab) 1 tab DAILY PO 08/19/17 09:00 09/18/17 08:59 08/20/17 09:23 1 TAB Aspirin (Ecotrin Tab) 325 mg QAM PO 08/19/17 09:00 09/18/17 08:59 08/20/17 09:23 325 MG Morphine Sulfate (MoRPHine SULFATE INJ) 4 mg Q4HWA PRN IV 08/18/17 20:30 09/01/17 20:29 Morphine Sulfate (MoRPHine SULFATE INJ) 6 mg Q4HWA PRN IV 08/18/17 20:30 09/01/17 20:29 Famotidine (Pepcid Tab) 40 mg HS PO 08/19/17 21:00 09/18/17 20:59 Levothyroxine Sodium (Synthroid Tab) 175 mcg DAILYBB PO 08/20/17 06:00 09/19/17 05:59 08/20/17 05:47 175 MCG Mesalamine (Delzicol Delayed Rel Cap) 800 mg BID PO 08/19/17 09:00 09/18/17 08:59 Pravastatin Sodium (Pravachol Tab) 20 mg HS PO 08/19/17 21:00 09/18/17 20:59 08/19/17 21:04 20 MG Sertraline HCl (Zoloft Tab) 150 mg QAM PO 08/19/17 09:00 09/18/17 08:59 Ketorolac Tromethamine (Toradol Inj) 15 mg Q6H PRN IV. 08/20/17 01:45 08/25/17 01:44 08/20/17 04:38 15 MG Bacitracin/ Polymyxin B Sulfate (Polysporin Oint) 1 appln BID EXT 08/20/17 21:00 09/19/17 20:59 Objective Vital Signs Date Time Temp Pulse Resp B/P (MAP) Pulse Ox O2 Delivery O2 Flow Rate FiO2 08/20/17 12:10 37.3 94 18 124/68 92 08/20/17 10:18 37.0 96 18 114/58 08/20/17 09:52 37.1 96 18 97/57 91 08/20/17 09:34 37.1 100 18 99/58 08/20/17 09:15 37.1 107 18 97/54 08/20/17 07:23 37.4 110 16 98/58 (71) 92 Room Air 08/20/17 07:15 Room Air 08/20/17 05:50 37.3 110 08/19/17 23:35 Room Air 08/19/17 23:10 37.8 111 20 110/61 (77) 91 Room Air 08/19/17 16:07 37.1 100 19 99/61 (74) 93 Room Air 08/19/17 15:40 Room Air Physical Exam General Appearance: WD/WN, no apparent distress, + pertinent finding (left arm in cast and sling) ENT: + pertinent finding (nose mildly swollen with scab on left side) Respiratory/Chest: lungs clear, normal breath sounds Cardiovascular: regular rate, rhythm, no edema Abdomen: non tender, soft Extremities: + pertinent finding (right calf mildly tender to palpation. No swelling, no erythema, no warmth of either calf. Left arm dressing c/d/i) Neurologic/Psychiatric: alert, normal mood/affect, oriented x 3 Laboratory Results Last 24 Hours Test 08/20/17 07:56 08/20/17 09:37 08/20/17 14:30 White Blood Count 9.81 K/uL Red Blood Count 2.46 M/uL Hemoglobin 7.9 g/dL Hematocrit 23.5 % Mean Corpuscular Volume 95.5 fL Mean Corpuscular Hemoglobin 32.1 pg Mean Corpuscular Hemoglobin Concent 33.6 g/dl RDW Standard Deviation 45.4 fL RDW Coefficient of Variation 13.1 % Platelet Count 176 K/uL Mean Platelet Volume 8.1 fL Sodium Level 133 mmol/L Potassium Level 3.7 mmol/L Chloride Level 100 mmol/L Carbon Dioxide Level 27 mmol/L Anion Gap 7.0 mmol/L Blood Urea Nitrogen 13 mg/dl Creatinine 0.78 mg/dl Est Creatinine Clear Calc Drug Dose 124.7 ml/min Estimated GFR () 117.0 Estimated GFR (Non- 100.9 BUN/Creatinine Ratio 16.5 Random Glucose 163 mg/dl Calcium Level 7.9 mg/dl Influenza Type A Antigen Neg for Influ A Influenza Type B Antigen Neg for Influ B Assessment and Plan The patient is a 57 year old male with a past medical history of HTN, Ulcerative Colitis, Depression, GERD, and HLD that presents from [facility] with a fractured left humerus. Left Humeral Head Fracture - Left Humeral X-Ray: Markedly displaced, comminuted left humeral neck and head fracture with multiple associated fracture fragments. No distal left humeral fracture. Anatomic alignment of left elbow. - day 2 post-op - patient underwent left shoulder hemiarthroplasty - per ortho team -> limited PT -> tylenol and oxycodone IR -> pt stable for d/c from ortho standpoint Hemoglobin Drop - pt's hemoglobin dropped from 14.2 to 7.9 after surgery - pt experiencing fatigue as well - transfused 1 unit of prbcs - Hgb increased to 9.4 after transfusion - recheck h&h tomorrow prior to d/c Productive Cough - influenza negative - cxr ordered - suggests atelectasis, no signs of infection - incentive spirometry and flutter valve ordered Constipation - pt currently on colace and milk of mag - will add miralax daily Nasal Fractures - CT Head: Nasal soft tissue swelling and minimally displaced bilateral nasal bone fractures and a suspected fracture through the anterior aspect of the nasal septum. These fractures are likely acute. - No difficulties breathing at this time - outpatient f/u History of Hypertension - Currently normotensive with no antihypertensive medications (lifestyle controlled) Ulcerative Colitis - No recent flares - continue home dose of Mesalamine 800mg PO BID High Glucose Levels - Glucose levels were in the 200s on admission, patient denies any history of diabetes or elevated blood sugars - HbA1c = 6.2% - high risk for developing diabetes - outpatient management Depression - Continue Zoloft KATINA - Recommend sleep study as outpatient HLD - Continue Pravastatin GERD - Continue Pepcid Hypothyroidism - Continue Synthroid DVT - SCDs - ASA Code Status - Full Resuscitation Disposition: Stable for d/c tomorrow Thank you for the consult Resident Tracking Resident Involvement: Resident Care Provided Care Provided: Adult [facility] Medicine History Resident Physician Supervision Note: I was present with Dr. Witt during the history and exam. I discussed the case with the resident and agree with the findings and plan as documented in the note. Any exceptions or clarifications are listed here. Pt reports persistent left upper extremity pain well controlled on present regimen. Productive cough predominantly of sputum with some sensation of tightness without fever. General Appearance: no apparent distress, obese Respiratory: chest non-tender, lungs clear, respiratory distress Cardiovascular: normal peripheral pulses, regular rate, rhythm, no murmur Gastrointestinal: normal bowel sounds, non tender, no pulsatile mass Assessment/Plan 57 y/o male h/o HTN, UC, depression, HLD p/w humeral fracture Anemia - likely bloodloss between trauma and surgery - s/p 1U PRBC w/ improvement - trend CBC in AM L humeral head fracture - orthopaedic consultation - pain mgmt per primary team Cough - CXR WNL - IS and FV Constipation - continue MoM and colace, add miralax Nasal fractures - follow up as outpatient HTN - monitor UC - continue mesalamine Impaired fasting glucose - monitor, encourage weight loss after recovery VTE PPX: SCDs FULL CODE
[2017-08-20] MEDS ORDERED: POLYETHYLENE (MIRALAX) 17 GM PACK PO ONE (14:32)
[2017-08-20 14:51] LABS: HEMATOCRIT 27.1 % (42-52); HEMOGLOBIN 9.4 g/dL (14.0-18.0)
--- NOTE | 2017-08-20 15:54 | DIAGNOSTIC IMAGING REPORT ---
CHEST 2 VIEWS ROUTINE HISTORY: 57 years-old Male productive cough, rule out infection acute cough COMPARISON: Chest radiograph 08/17/2017 TECHNIQUE: PA and lateral views of the chest FINDINGS: The cardiomediastinal and hilar silhouettes are within normal limits. There is no pneumothorax, lobar airspace consolidation or overt pulmonary edema. Minimal linear subsegmental left basilar opacities with mild left costophrenic angle blunting. Right lung is generally clear. The lateral view is limited secondary to positioning of the patient's arms. Postoperative changes from recent left shoulder arthroplasty with anterior skin sadie noted. Remote appearing compression deformity of a lower thoracic segment noted. IMPRESSION: Trace left pleural effusion with subsegmental left basilar opacities suggesting atelectasis. The above report was generated using voice recognition software. It may contain grammatical, syntax or spelling errors. Electronically signed by: Arsenio Barnett M.D. 08/20/2017 3:52 PM Dictated Date/Time: 08/20/2017 3:50 PM
[2017-08-20] MEDS: BACITRACIN/POLYMYXIN B OINT 90 APPLN/28.4 GM TUBE EXT SCH (21:43)
[2017-08-20] MEDS: PRAVASTATIN SOD 20 MG TAB PO SCH (21:44)
[2017-08-20] MEDS: FAMOTIDINE 20 MG TAB PO SCH (21:45)
[2017-08-21] MEDS: OXYCODONE HCL IR 5 MG TAB (IMMEDIATE RELEASE) PO PRN ×2 (02:33→12:16)
[2017-08-21] MEDS: ACETAMINOPHEN 500 MG TAB PO SCH ×3 (05:52→22:32)
[2017-08-21] MEDS: LEVOTHYROXINE 175 MCG TAB PO SCH (05:52)
[2017-08-21 07:14] LABS: HEMATOCRIT 28.6 % (42-52); HEMOGLOBIN 9.5 g/dL (14.0-18.0); MEAN CORPUSCULAR HEMOGLOBIN 31.6 pg (25-34); MEAN CORPUSCULAR HGB CONC 33.2 g/dl (32-36); MEAN PLATELET VOLUME 8.6 fL (7.4-10.4); NUCLEATED RED BLOOD CELL ABS 0.03 K/uL (0-0); PLATELET COUNT 222 K/uL (130-400); RED CELL DISTRIBUTION WIDTH CV 13.8 % (11.5-14.5); RED CELL DISTRIBUTION WIDTH SD 47.7 fL (36.4-46.3); WHITE BLOOD COUNT 8.18 K/uL (4.8-10.8)
--- NOTE | 2017-08-21 07:37 | Family Medicine Progress Note ---
Progress Note Date of Service Aug 21, 2017. Subjective Pt evaluation today including: conversation w/ patient, physical exam, chart review, lab review, review of inpatient medication list Pain: Pain controlled with analgesia PO Intake: Tolerating PO intake Voiding: no voiding problems Mr. Mo reports he feels well today. He does note some fatigue on ambulating, but denies chest pain, palpitations or shortness of breath. He has no new complaints today. He did have a bowel movement yesterday. Constitutional: No fever, No chills Respiratory: + cough, No shortness of breath, No dyspnea on exertion Cardiovascular: No chest pain Abdomen: No pain, No nausea, No vomiting All Other Systems: Reviewed and Negative Medications Current Inpatient Medications Medications (Trade) Dose Ordered Sig/Jourdan Route Start Time Stop Time Status Last Admin Dose Admin Ioversol (Optiray 320) 100 ml UD PRN IV 08/17/17 19:00 08/21/17 18:59 Glucose (Glucose 40% Gel) 15-30 GRAMS 15 GRAMS... UD PRN PO 08/18/17 01:00 09/17/17 00:59 Glucose (Glucose Chew Tab) 4-8 Tablets 4 Tabl... UD PRN PO 08/18/17 01:00 09/17/17 00:59 Dextrose (Dextrose 50% 50ML Syringe) 25-50ML OF 50% DW IV FOR... UD PRN IV 08/18/17 01:00 09/17/17 00:59 Glucagon (Glucagon Inj) 1 mg UD PRN SQ 08/18/17 01:00 09/17/17 00:59 Morphine Sulfate (MoRPHine SULFATE INJ) 2 mg Q4HWA PRN IV 08/18/17 19:45 09/01/17 19:44 Al Hydroxide/Mg Hydroxide (Maalox Susp) 30 ml Q4H PRN PO 08/18/17 19:45 09/17/17 19:44 Oxycodone HCl (Roxicodone Immediate Rel Tab) `1-2 TABS FOR PAIN `1 TAB... Q4H PRN PO 08/18/17 19:45 09/01/17 19:44 08/21/17 02:33 10 MG Acetaminophen (Tylenol Tab) 1,000 mg Q8 PO 08/18/17 22:00 3/30/18 21:59 08/21/17 05:52 1,000 MG Magnesium Hydroxide (Milk Of Magnesia Susp) 30 ml Q6H PRN PO 08/18/17 19:45 09/17/17 19:44 08/20/17 09:35 30 ML Bisacodyl (Dulcolax Supp) 10 mg DAILY PRN [place] 08/18/17 19:45 09/17/17 19:44 Docusate Sodium (coLACE CAP) 100 mg BID PO 08/18/17 21:00 09/17/17 20:59 08/21/17 09:02 100 MG Multivitamins (Multivitamin Tab) 1 tab DAILY PO 08/19/17 09:00 09/18/17 08:59 08/21/17 09:02 1 TAB Aspirin (Ecotrin Tab) 325 mg QAM PO 08/19/17 09:00 09/18/17 08:59 08/21/17 09:02 325 MG Morphine Sulfate (MoRPHine SULFATE INJ) 4 mg Q4HWA PRN IV 08/18/17 20:30 09/01/17 20:29 Morphine Sulfate (MoRPHine SULFATE INJ) 6 mg Q4HWA PRN IV 08/18/17 20:30 09/01/17 20:29 Famotidine (Pepcid Tab) 40 mg HS PO 08/19/17 21:00 09/18/17 20:59 Levothyroxine Sodium (Synthroid Tab) 175 mcg DAILYBB PO 08/20/17 06:00 09/19/17 05:59 08/21/17 05:52 175 MCG Mesalamine (Delzicol Delayed Rel Cap) 800 mg BID PO 08/19/17 09:00 09/18/17 08:59 Pravastatin Sodium (Pravachol Tab) 20 mg HS PO 08/19/17 21:00 09/18/17 20:59 08/20/17 21:44 20 MG Sertraline HCl (Zoloft Tab) 150 mg QAM PO 08/19/17 09:00 09/18/17 08:59 Ketorolac Tromethamine (Toradol Inj) 15 mg Q6H PRN IV. 08/20/17 01:45 08/25/17 01:44 08/20/17 20:23 15 MG Bacitracin/ Polymyxin B Sulfate (Polysporin Oint) 1 appln BID EXT 08/20/17 21:00 09/19/17 20:59 08/21/17 09:02 1 APPLN Polyethylene (Miralax Powder Packet) 17 gm DAILY PO 08/21/17 09:00 09/20/17 08:59 08/21/17 09:01 17 GM Objective Vital Signs Date Time Temp Pulse Resp B/P (MAP) Pulse Ox O2 Delivery O2 Flow Rate FiO2 08/21/17 08:13 36.9 67 18 131/78 (95) 95 Room Air 08/20/17 23:30 Room Air 08/20/17 23:02 37.2 94 14 111/72 (85) 92 Room Air 08/20/17 15:52 Room Air 08/20/17 14:54 36.4 86 16 118/76 (90) 94 Room Air 08/20/17 12:10 37.3 94 18 124/68 92 08/20/17 10:18 37.0 96 18 114/58 08/20/17 09:52 37.1 96 18 97/57 91 Physical Exam General Appearance: WD/WN, no apparent distress ENT: + pertinent finding (nose slightly swollen with small scab over left side) Respiratory/Chest: lungs clear, normal breath sounds Cardiovascular: regular rate, rhythm, no edema Abdomen: non tender, soft Extremities: + pertinent finding (left arm in sling with dressing in place. Dressing c/d/i. Bruising noted around axilla) Laboratory Results Last 24 Hours Test 08/20/17 14:39 08/21/17 06:11 Hemoglobin 9.4 g/dL 9.5 g/dL Hematocrit 27.1 % 28.6 % White Blood Count 8.18 K/uL Red Blood Count 3.01 M/uL Mean Corpuscular Volume 95.0 fL Mean Corpuscular Hemoglobin 31.6 pg Mean Corpuscular Hemoglobin Concent 33.2 g/dl RDW Standard Deviation 47.7 fL RDW Coefficient of Variation 13.8 % Platelet Count 222 K/uL Mean Platelet Volume 8.6 fL Nucleated RBC Absolute Count (auto) 0.03 K/uL Nucleated Red Blood Cells % 0.4 % Assessment and Plan The patient is a 57 year old male with a past medical history of HTN, Ulcerative Colitis, Depression, GERD, and HLD that presents from [facility] with a fractured left humerus. Chest pain - pt was ready for d/c today and developed 10/10 chest pain, SOB, and noted he felt warm. Pt states chest pain originated over surgical site and traveled across chest. He describes the pain as a muscle spasm. No diaphoresis, no n/v. No pain with exertion. Pain resolved without intervention, after approx 15 minutes. - pt has positive family hx of HI in his father at age 30. Pt also prior smoker. - EKG wnl but given he recently had surgery and is at a higher risk for PE, will check d-dimer and serial troponins given family hx - tachycardic at 106, otherwise vital signs wnl. No new oxygen demand. - monitor overnight Left Humeral Head Fracture - Left Humeral X-Ray: Markedly displaced, comminuted left humeral neck and head fracture with multiple associated fracture fragments. No distal left humeral fracture. Anatomic alignment of left elbow. - day 3 post-op - patient underwent left shoulder hemiarthroplasty - per ortho team -> limited PT -> tylenol and oxycodone IR -> pt stable for d/c from ortho standpoint Hemoglobin Drop - pt's hemoglobin dropped from 14.2 to 7.9 after surgery - pt experiencing fatigue as well - transfused 1 unit of prbcs - Hgb increased to 9.4 after transfusion - hemoglobin stable at 9.5 Productive Cough - influenza negative - cxr ordered - suggests atelectasis, no signs of infection - incentive spirometry and flutter valve ordered Constipation - resolved - pt currently on colace, miralax and milk of mag - d/c on colace Nasal Fractures - CT Head: Nasal soft tissue swelling and minimally displaced bilateral nasal bone fractures and a suspected fracture through the anterior aspect of the nasal septum. These fractures are likely acute. - No difficulties breathing at this time - outpatient f/u History of Hypertension - Currently normotensive with no antihypertensive medications (lifestyle controlled) Ulcerative Colitis - No recent flares - continue home dose of Mesalamine 800mg PO BID High Glucose Levels - Glucose levels were in the 200s on admission, patient denies any history of diabetes or elevated blood sugars - HbA1c = 6.2% - high risk for developing diabetes - outpatient management Depression - Continue Zoloft KATINA - Recommend sleep study as outpatient HLD - Continue Pravastatin GERD - Continue Pepcid Hypothyroidism - Continue Synthroid DVT - SCDs - ASA Code Status - Full Resuscitation Disposition: remains on med/surg Thank you for the consult. Resident Tracking Resident Involvement: Resident Care Provided Care Provided: Adult Hospital Medicine Assessment/Plan Resident Physician Supervision Note: I was present with Dr. iWtt during the history and exam. I discussed the case with the resident and agree with the findings and plan as documented in the note. Any exceptions or clarifications are listed here: 57 y/o male h/o HTN, UC, depression, HLD p/w humeral fracture with new onset central pressure-like chest pain in the setting of progressive fatigue and SOB. EKG NSR. Dimer elevated. Troponins pending. CTA chest for evaluation for PE. If WNL and troponins negative, okay to d/c tomorrow. Anemia stable, pain of the left shoulder well controlled.
--- NOTE | 2017-08-21 07:45 | Discharge Instructions ---
Discharge Instructions Date of Service Aug 22, 2017. Admission Reason for Admission: Fx Lt Humerous Discharge Discharge Diagnosis / Problem: Fracture of Left Humerus Discharge Goals Goal(s): Decrease discomfort, Improve function Activity Recommendations Activity Limitations: per Instructions/Follow-up section . Instructions / Follow-Up Instructions / Follow-Up You were admitted to [facility] for a fractured left humerus. You underwent surgery for this with the orthopedic team. Please see their notes for instructions on activity limitations and follow up. Additional medical problems addressed at this visit include: Hemoglobin Drop - your hemoglobin dropped from 14.2 to 7.9 after surgery - you were transfused with one unit of blood and your hemoglobin has been stable since Chest Pain - you developed chest pain while in the hospital - we checked an EKG (tracing of your heart), troponin (enzyme in the blood that measures damage to your heart) and a CT scan to ensure you did not have a blood clot in your lungs - these were all normal - your pain is likely related to your recent surgery - if you experience worsening chest pain, shortness of breath, sweating, or feel your heart is beating very quickly and irregularly, please seek medical attention Cough - Your influenza swab was negative, and your chest x-ray did not show any signs of pneumonia - this is likely a combination of post-surgical changes that will resolve and a viral infection - if your cough gets worse, you develop high fevers or chills, please seek medical attention Nasal Fractures - your CT scan showed a suspected fracture of your nasal septum - this does not require surgery - you can follow up with your regular doctor regarding this High Sugar Levels - your glucose levels were high on admission and 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, 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, 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 at 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%, which puts you at risk for developing diabetes later in life - we recommend follow up with a primary care doctor in order to optimize your lifestyle habits to try and prevent the development of diabetes Sleep Apnea - Recommend sleep study as outpatient Current Hospital Diet Patient's current hospital diet: Regular Diet Discharge Diet Recommended Diet: Regular Diet Procedures Procedures Performed: Left shoulder Natalio-arthoplasty cemented, repair rotator cuff and tuberosity with humeral head bone graft and bicep tenodesis Pending Studies Studies pending at discharge: no Laboratory Results Hemoglobin A1c Test 08/17/17 19:17 Range/Units Estimated Average Glucose 131 mg/dl Hemoglobin A1c 6.2 H 4.5-5.6 % Medical Emergencies . Who to Call and When: Medical Emergencies: If at any time you feel your situation is an emergency, please call 911 immediately. . Non-Emergent Contact Non-Emergency issues call your: Primary Care Provider . . "Provider Documentation" section prepared by Lester Witt. .
[2017-08-21 08:13] VITALS: BP 131/78; PULSE 67; TEMP 36.9; O2SAT 95
[2017-08-21] MEDS: SERTRALINE HCL 50 MG TAB PO SCH (09:00)
[2017-08-21] MEDS: MESALAMINE 400 MG CAPDR PO SCH ×2 (09:00→21:00)
[2017-08-21] MEDS: POLYETHYLENE (MIRALAX) 17 GM PACK PO SCH (09:01)
[2017-08-21] MEDS: ASPIRIN 325 MG ECTAB PO SCH (09:02)
[2017-08-21] MEDS: MULTIVITAMIN TAB PO SCH (09:02)
[2017-08-21] MEDS: DOCUSATE SODIUM 100 MG CAP PO SCH ×2 (09:02→21:00)
[2017-08-21] MEDS: BACITRACIN/POLYMYXIN B OINT 90 APPLN/28.4 GM TUBE EXT SCH ×2 (09:02→21:19)
--- NOTE | 2017-08-21 11:49 | Orthopedic Progress Note ---
Orthopedic Progress Note Date of Service Aug 21, 2017. Subjective Additional Notes: The patient was seen at bedside sitting in chair, comfortable, pain well controlled, offered no complaint at this time. No acute issues overnight. Objective Left upper extremity is neurovascular sensory intact, intact ulnar, radial, median, AIN, PIN. Sensory intact light touch grossly. +2 radial pulse. Dressing clean dry and intact. Compartments soft nontender. Left upper extremity sling immobilizer intact. Date Time Temp Pulse Resp B/P (MAP) Pulse Ox O2 Delivery O2 Flow Rate FiO2 08/21/17 08:13 36.9 67 18 131/78 (95) 95 Room Air 08/21/17 08:10 Room Air 08/20/17 23:30 Room Air 08/20/17 23:02 37.2 94 14 111/72 (85) 92 Room Air 08/20/17 15:52 Room Air 08/20/17 14:54 36.4 86 16 118/76 (90) 94 Room Air 08/20/17 12:10 37.3 94 18 124/68 92 Laboratory Results 24 Hours: Test 08/20/17 14:39 08/21/17 06:11 Hematocrit 27.1 % 28.6 % Hemoglobin 9.4 g/dL 9.5 g/dL Assessment & Plan Assessment: POD #3, Left shoulder hemiarthroplasty s/p fx Plan: Limited PT as ordered- REVERSE TSA PROTOCOL DVT proph- ASA 325MG DAILY ORTHOPEDICALLY STABLE FOR DC. PAIN MANAGEMENT- [place], TYLENOL Patient will need to follow-up in the office 10-14 days. Nonweightbearing left upper extremity. Maintain sling immobilization until follow-up appointment. Inhouse Planning Pain Management: Morphine, PO Tylenol, Oxy IR DVT Prophylaxis: SCDs, ASA Discharge Planning Discharge Planning: other ([facility]) Pain Management: PO Tylenol, Oxy IR DVT Prophylaxis: ASA
[2017-08-21 14:54] VITALS: BP 121/74; PULSE 106; TEMP 37.3; O2SAT 97
[2017-08-21] MEDS: KETOROLAC TROMETHAMINE 15 MG/ML VIAL IV. PRN (15:27)
[2017-08-21 17:08] VITALS: O2SAT 97
[2017-08-21] MEDS ORDERED: OPTIRAY 320 IV PRN (18:45)
--- NOTE | 2017-08-21 20:00 | DIAGNOSTIC IMAGING REPORT ---
(CHEST FOR PE) ANGIO WITH CLINICAL HISTORY: 57 years-old Male presenting with ^post-op with chest pain and SOB. D-dimer elevated. TECHNIQUE: Multidetector CT angiography of the chest was performed after administration of intravenous contrast. 3-D volumetric and/or maximum intensity projection (MIP) images were subsequently reconstructed for review. IV contrast: 101 mL of Optiray 320. A dose lowering technique was used consistent with the principles of ALARA (as low as reasonably achievable). COMPARISON: 08/17/2017. CT DOSE (mGy.cm): The estimated cumulative dose is 756.31 mGy.cm. 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 Pulmonary vasculature: The study is suboptimal for the assessment of the pulmonary vascular tree secondary to timing of the contrast bolus. Allowing for limited image quality, no central filling defect to suggest pulmonary embolus. Main pulmonary artery is not enlarged. No flattening of the interventricular septum. No intracardiac filling defect. No reflux of contrast into the hepatic veins. Remaining chest: On soft tissue windows, extensive fat infiltration along the anterior left chest wall and surrounding the left shoulder musculature. Postsurgical changes of left shoulder arthroplasty for the comminuted left humeral head fracture. The transiting left axillary artery is patent. Hyperdensity adjacent to the artery is unchanged from prior and is not consistent with extravasation. Overall infiltration of the musculature and chest wall has increased from prior. No axillary, supraclavicular, hilar, or mediastinal lymphadenopathy. Atherosclerosis of the aorta. Normal heart size. Coronary artery calcification. No pericardial or pleural effusion. Hepatic steatosis. Prominent left adrenal 5 cm nodule. On lung windows, bandlike opacity at the left lung base likely atelectasis. No other opacity. Central airways patent. On bone windows, postsurgical changes of left shoulder arthroplasty. Surrounding comminuted fracture fragments again noted. Expected soft tissue emphysema. IMPRESSION: 1. Postsurgical changes of left shoulder arthroplasty for the comminuted left proximal humerus fracture. 2. Allowing for suboptimal image quality, no evidence of pulmonary embolus. No acute intrathoracic pathology. 3. Significant interval increase in chest wall and muscular edema surrounding the left shoulder and left anterior chest. This could relate to expected postsurgical changes. Correlate clinically to exclude infection. 4. Hepatic steatosis. 5. Left adrenal nodule. Electronically signed by: Guicho Liu M.D. 08/21/2017 7:59 PM Dictated Date/Time: 08/21/2017 7:48 PM
[2017-08-21] MEDS: PRAVASTATIN SOD 20 MG TAB PO SCH (21:19)
[2017-08-21] MEDS: FAMOTIDINE 20 MG TAB PO SCH (21:20)
[2017-08-21 22:53] VITALS: BP 147/84; PULSE 74; TEMP 37.3; O2SAT 96
[2017-08-22] MEDS: OXYCODONE HCL IR 5 MG TAB (IMMEDIATE RELEASE) PO PRN (00:11)
[2017-08-22] MEDS: ACETAMINOPHEN 500 MG TAB PO SCH ×2 (05:16→13:37)
[2017-08-22] MEDS: LEVOTHYROXINE 175 MCG TAB PO SCH (05:16)
[2017-08-22 05:58] LABS: HEMATOCRIT 30.1 % (42-52); HEMOGLOBIN 10.2 g/dL (14.0-18.0)
--- NOTE | 2017-08-22 06:48 | Family Medicine Progress Note ---
Progress Note Date of Service Aug 22, 2017. Subjective Pt evaluation today including: conversation w/ patient, physical exam, chart review, lab review, review of inpatient medication list Pain: Pain well controlled with analgesia PO Intake: Tolerating PO intake Voiding: no voiding problems Mr. Mo reports he feels well today. He denies any further episodes of chest pain or shortness of breath. He does note pain over his surgical site, particularly on movement, but states it is relieved by analgesia. He denies leg swelling, fever, chills, or abdominal pain, but does remain with a mild productive cough. He has been having regular BMs. Constitutional: No fever, No chills Respiratory: + cough, + sputum, No shortness of breath Cardiovascular: No chest pain Abdomen: No pain, No nausea, No vomiting, No diarrhea, No constipation All Other Systems: Reviewed and Negative Medications Current Inpatient Medications Medications (Trade) Dose Ordered Sig/Jourdan Route Start Time Stop Time Status Last Admin Dose Admin Glucose (Glucose 40% Gel) 15-30 GRAMS 15 GRAMS... UD PRN PO 08/18/17 01:00 09/17/17 00:59 Glucose (Glucose Chew Tab) 4-8 Tablets 4 Tabl... UD PRN PO 08/18/17 01:00 09/17/17 00:59 Dextrose (Dextrose 50% 50ML Syringe) 25-50ML OF 50% DW IV FOR... UD PRN IV 08/18/17 01:00 09/17/17 00:59 Glucagon (Glucagon Inj) 1 mg UD PRN SQ 08/18/17 01:00 09/17/17 00:59 Morphine Sulfate (MoRPHine SULFATE INJ) 2 mg Q4HWA PRN IV 08/18/17 19:45 09/01/17 19:44 Al Hydroxide/Mg Hydroxide (Maalox Susp) 30 ml Q4H PRN PO 08/18/17 19:45 09/17/17 19:44 Oxycodone HCl (Roxicodone Immediate Rel Tab) `1-2 TABS FOR PAIN `1 TAB... Q4H PRN PO 08/18/17 19:45 09/01/17 19:44 08/22/17 00:11 10 MG Acetaminophen (Tylenol Tab) 1,000 mg Q8 PO 08/18/17 22:00 09/17/17 21:59 08/22/17 05:16 1,000 MG Magnesium Hydroxide (Milk Of Magnesia Susp) 30 ml Q6H PRN PO 08/18/17 19:45 09/17/17 19:44 08/20/17 09:35 30 ML Bisacodyl (Dulcolax Supp) 10 mg DAILY PRN OR 08/18/17 19:45 09/17/17 19:44 Docusate Sodium (coLACE CAP) 100 mg BID PO 08/18/17 21:00 09/17/17 20:59 08/22/17 09:38 100 MG Multivitamins (Multivitamin Tab) 1 tab DAILY PO 08/19/17 09:00 09/18/17 08:59 08/22/17 09:39 1 TAB Aspirin (Ecotrin Tab) 325 mg QAM PO 08/19/17 09:00 09/18/17 08:59 08/22/17 09:39 325 MG Morphine Sulfate (MoRPHine SULFATE INJ) 4 mg Q4HWA PRN IV 08/18/17 20:30 09/01/17 20:29 Morphine Sulfate (MoRPHine SULFATE INJ) 6 mg Q4HWA PRN IV 08/18/17 20:30 09/01/17 20:29 Famotidine (Pepcid Tab) 40 mg HS PO 08/19/17 21:00 09/18/17 20:59 08/21/17 21:20 40 MG Levothyroxine Sodium (Synthroid Tab) 175 mcg DAILYBB PO 08/20/17 06:00 09/19/17 05:59 08/22/17 05:16 175 MCG Mesalamine (Delzicol Delayed Rel Cap) 800 mg BID PO 08/19/17 09:00 09/18/17 08:59 Pravastatin Sodium (Pravachol Tab) 20 mg HS PO 08/19/17 21:00 09/18/17 20:59 08/21/17 21:19 20 MG Sertraline HCl (Zoloft Tab) 150 mg QAM PO 08/19/17 09:00 09/18/17 08:59 Ketorolac Tromethamine (Toradol Inj) 15 mg Q6H PRN IV. 08/20/17 01:45 08/25/17 01:44 08/21/17 15:27 15 MG Bacitracin/ Polymyxin B Sulfate (Polysporin Oint) 1 appln BID EXT 08/20/17 21:00 09/19/17 20:59 08/22/17 09:39 1 APPLN Polyethylene (Miralax Powder Packet) 17 gm DAILY PO 08/21/17 09:00 09/20/17 08:59 08/21/17 09:01 17 GM Ioversol (Optiray 320) 100 ml UD PRN IV 08/21/17 18:45 08/25/17 18:44 Objective Vital Signs Date Time Temp Pulse Resp B/P (MAP) Pulse Ox O2 Delivery O2 Flow Rate FiO2 08/22/17 07:05 36.9 86 16 126/75 (92) 95 Room Air 08/21/17 23:30 Room Air 08/21/17 22:53 37.3 74 14 147/84 (105) 96 Room Air 08/21/17 17:08 97 Room Air 08/21/17 14:54 37.3 106 20 121/74 (90) 97 Room Air Physical Exam General Appearance: WD/WN, no apparent distress Respiratory/Chest: chest non-tender, lungs clear, normal breath sounds, no respiratory distress, no accessory muscle use Cardiovascular: regular rate, rhythm, no edema, no murmur Abdomen: non tender, soft Extremities: no pedal edema, no calf tenderness Neurologic/Psychiatric: alert, normal mood/affect Laboratory Results Last 24 Hours Test 08/21/17 17:31 08/21/17 23:29 08/22/17 05:41 D-Dimer 2430 ug/L FEU Troponin I 0.016 ng/ml < 0.015 ng/ml < 0.015 ng/ml Hemoglobin 10.2 g/dL Hematocrit 30.1 % Assessment and Plan The patient is a 57 year old male with a past medical history of HTN, Ulcerative Colitis, Depression, GERD, and HLD that presents from [facility] with a fractured left humerus. Chest pain - pt was ready for d/c yesterday and developed 10/10 chest pain, SOB, and noted he felt warm. Pt states chest pain originated over surgical site and traveled across chest. He describes the pain as a muscle spasm. No diaphoresis, no n/v. No pain with exertion. Pain resolved without intervention, after approx 15 minutes. - pt has positive family hx of [place] in his father at age 30. Pt also prior smoker. - EKG wnl, trops wnl, CTA negative for PE, no further episodes of chest pain - pt stable for discharge Left Humeral Head Fracture - Left Humeral X-Ray: Markedly displaced, comminuted left humeral neck and head fracture with multiple associated fracture fragments. No distal left humeral fracture. Anatomic alignment of left elbow. - day 4 post-op - patient underwent left shoulder hemiarthroplasty - per ortho team -> limited PT -> tylenol and oxycodone IR -> pt stable for d/c from ortho standpoint Hemoglobin Drop - pt's hemoglobin dropped from 14.2 to 7.9 after surgery - transfused 1 unit of prbcs - hemoglobin stable at 10.2 on d/c Productive Cough - influenza negative - cxr ordered - suggests atelectasis, no signs of infection - incentive spirometry and flutter valve ordered Constipation - resolved - pt currently on colace, miralax and milk of mag - d/c on colace Nasal Fractures - CT Head: Nasal soft tissue swelling and minimally displaced bilateral nasal bone fractures and a suspected fracture through the anterior aspect of the nasal septum. These fractures are likely acute. - No difficulties breathing at this time - outpatient f/u History of Hypertension - Currently normotensive with no antihypertensive medications (lifestyle controlled) Ulcerative Colitis - No recent flares - continue home dose of Mesalamine 800mg PO BID High Glucose Levels - Glucose levels were in the 200s on admission, patient denies any history of diabetes or elevated blood sugars - HbA1c = 6.2% - high risk for developing diabetes - outpatient management Depression - Continue Zoloft KATINA - Recommend sleep study as outpatient HLD - Continue Pravastatin GERD - Continue Pepcid Hypothyroidism - Continue Synthroid DVT - SCDs - ASA Code Status - Full Resuscitation Disposition: discharge today Thank you for the consult. Resident Tracking Resident Involvement: Resident Care Provided Care Provided: Adult Hospital Medicine Assessment/Plan Resident Physician Supervision Note: I was present with Dr. Witt during the history and exam. I discussed the case with the resident and agree with the findings and plan as documented in the note. Any exceptions or clarifications are listed here: 57 y/o male h/o HTN, UC, depression, HLD p/w humeral fracture with new onset central pressure-like chest pain in the setting of progressive fatigue and SOB - EKG, Troponins and CTA chest without overt pathology, pain and fatigue likely 2/2 left humerus fx and anemia. Continue with pain management and gradual rehabilitation. Would repeat CBC at follow up.
[2017-08-22 07:05] VITALS: BP 126/75; PULSE 86; TEMP 36.9; O2SAT 95
[2017-08-22] MEDS: MESALAMINE 400 MG CAPDR PO SCH (09:00)
[2017-08-22] MEDS: SERTRALINE HCL 50 MG TAB PO SCH (09:00)
[2017-08-22] MEDS: POLYETHYLENE (MIRALAX) 17 GM PACK PO SCH (09:00)
[2017-08-22] MEDS: DOCUSATE SODIUM 100 MG CAP PO SCH (09:38)
[2017-08-22] MEDS: BACITRACIN/POLYMYXIN B OINT 90 APPLN/28.4 GM TUBE EXT SCH (09:39)
[2017-08-22] MEDS: ASPIRIN 325 MG ECTAB PO SCH (09:39)
[2017-08-22] MEDS: MULTIVITAMIN TAB PO SCH (09:39)
[2017-08-22 15:07] VITALS: BP 131/71; PULSE 104; TEMP 37.3; O2SAT 97
[2017-08-22 17:20] VITALS: BP 131/71; PULSE 104; TEMP 37.3; O2SAT 97
--- NOTE | 2017-08-25 23:55 | DISCHARGE SUMMARY ---
DISCHARGE DIAGNOSIS: Left comminuted proximal humerus fracture. SECONDARY DIAGNOSES: Hypertension, ulcerative colitis, depression, gastroesophageal reflux disease, hyperlipidemia. CONSULTS: Dr. Chilo Humphrey. COMPLICATIONS: None. PROCEDURES: Left shoulder hemiarthroplasty, repair of rotator cuff and tuberosity with humeral head bone graft and bicep tenodesis by Dr. Torres on 08/18/2017. BRIEF HISTORY: As dictated in history and physical. HOSPITAL SUMMARY: The patient was admitted on the above-noted date and had the above-noted surgery performed which he tolerated well. On his first postoperative day, he was feeling well, the pain was controlled. Neurovascularly, he was intact. Cap refill was less than 2 seconds. Dressing was clean, dry and intact, and fingers were mobile and he was using his sling. Mildly tachycardic at 100, temp was 37.1 and blood pressure was 99/61. Hemoglobin had dropped down to 8.5 and he was started on limited physical therapy protocol and continued on DVT prophylaxis and pain management. Repeat H&H on the following day showed that his hemoglobin had dropped down to 7.9. He was transfused 2 units of PRBCs per medicine service. The patient at that time was saying he was having more pain and he had just taken his oral pain medications. He had a low-grade temperature overnight at 37.8 and was complaining of a productive cough. Denied shortness of breath, chest pain, any urinary symptoms. Calves were soft and nontender. Neurovascularly intact. Dressings clean, dry and intact. He was alert and oriented. Vital signs showed temperature 37.4, pulse 110, respirations 16, BP 98/58. Again, he was noted to be transfused 2 units PRBCs and medicine service ordered a chest x-ray which showed trace left pleural effusion with subsegmental left basilar opacities suggesting atelectasis. By his third postoperative day, he was feeling well and was feeling better than he was the previous day. He was having some fatigue with ambulating but otherwise had no new complaints. He had had a bowel movement the previous day. He was seen by Dr. Blair. Left upper extremity was neurovascular and sensory was intact. He had intact ulnar, radial and median nerve, and he had radial pulses that were +2. Dressings clean, dry and intact. Compartments were soft, nontender. Vital signs were stable and he was afebrile. Hemoglobin was 9.5 and was remaining stable. The rest of his stay was essentially uneventful, and by 08/22/2017, it was felt he could be discharged back to [facility]. For further review, please see chart. LABORATORY AND X-RAY DATA: As per chart. DISCHARGE INSTRUCTIONS: The patient was discharged back to [facility] on 08/22/2017. DIET: Regular. ACTIVITY: Follow discharge instructions noted and the special care instructions as well for shoulder arthroplasty and the special care instructions for his wound. Follow up with Dr. Torres in 12-14 days. DISCHARGE MEDICATIONS: Aspirin 325 mg p.o. daily for 30 days, Colace 100 mg p.o. b.i.d. for 14 days, oxycodone 5-10 mg p.o. q. 4 hours p.r.n. Resume previous home meds as listed and stop taking 81 mg tablet of aspirin.
== END 2017-08-22 18:28 | disposition home or self-care (01) | DRG 483 ==
LOC: C.EDC 18:37 → C.MSN 22:17 → EDBEDREQ 22:21 → ENRESERV 22:30 → EDBEDREQ 22:55 → C.MSW 23:12
PROVIDERS: ADMIT Orthopaedic Surgery Sports Medicine; ATTEND Family Medicine
PROC: 0RRK0J6 Replacement of Left Shoulder Joint with Synthetic Substitute, Humeral Surface, Open Approach (ICD-10-PCS; principal; 2017-08-18 13:30)
PROC: 0LS30ZZ Reposition Right Upper Arm Tendon, Open Approach (ICD-10-PCS; principal; 2017-08-18 13:30)
DX: S42.292A Other displaced fracture of upper end of left humerus, initial encounter for closed fracture (principal); K51.90 Ulcerative colitis, unspecified, without complications; S02.2XXA Fracture of nasal bones, initial encounter for closed fracture; E03.9 Hypothyroidism, unspecified; Z87.891 Personal history of nicotine dependence; F32.9 Major depressive disorder, single episode, unspecified; I10 Essential (primary) hypertension; G47.33 Obstructive sleep apnea (adult) (pediatric); K59.00 Constipation, unspecified; E11.9 Type 2 diabetes mellitus without complications; E78.5 Hyperlipidemia, unspecified; Y92.148 Other place in prison as the place of occurrence of the external cause; Y04.0XXA Assault by unarmed brawl or fight, initial encounter; K21.9 Gastro-esophageal reflux disease without esophagitis